=== PATIENT | female | born 1985 | race American Indian/Alaskan Native ===

== ENCOUNTER 2018-07-06 02:15 | Emergency (ER) | payer OTHER ==
[2018-07-06 02:35] VITALS: BP 119/86; PULSE 62; RESP 20; TEMP 98.6; O2SAT 96
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
== END 2018-07-06 03:10 | disposition home or self-care (01) ==
LOC: C.ER 02:15 → EDBD 02:15 → C.ER 03:10
DX: S16.1XXA Strain of muscle, fascia and tendon at neck level, initial encounter (principal); V49.59XA Passenger injured in collision with other motor vehicles in traffic accident, initial encounter; Y92.488 Other paved roadways as the place of occurrence of the external cause